=== PATIENT | female | born 1940 | race Caucasian/White ===

== ENCOUNTER → 2017-07-10 | Outpatient (CLI) | payer MEDICARE ==
[~2017-07-10] MED LIST: ASPIR 8181 M1 PO; ASPIR-TRIN325 MG PO; CALCIUM 500 +1 EAC5 PO; CALCIUM 600 +1 EAC1 PO; CENTRUM SILVER1 EAC1 PO; CENTRUM SILVER1 EAC4 PO; CHONDROITIN SU100 GM PO; CO Q-10100 MG PO; COLACE100 MG PO; ELIQUIS2.5 MG PO; ESTRACE0.5 MG PO; FERROUS SULFAT325 M1 PO; FISH OIL OMEGA1 EAC3 PO; FLUZONE 2045 MCG/011; GLUCOSAMINE &1 EACH PO; GLUCOSAMINE CH1 EAC7 PO; GLUCOSAMINE HC500 MG PO; IBUPROFEN 600600 M1 PO; IRON236 MG PO; IRON325 PO; LEVOXYL100 MCG PO; LIPITOR40 MG PO; LISINOPRIL-HCT1 EAC1 PO; LISINOPRIL-HCT1 EACH PO; LISINOPRIL20 MG PO; LO-DOSE ASPIRIN81 M1 PO; METAMUCIL1 EAC1 PO; MILK OF MA2400 MG/10 PO; ONDANSETRON HCL4 M2 PO; OXYCODONE HCL 55 MG PO; PERCOCET PO; PNEUMOVAX25 MCG/0.5; PRINZIDE 20-121 EACH PO; PYRIDIUM200 M1 PO; UNICOMPLEX M TA1 TA1 PO; VICODIN ES TAB1 EACH; VITAMIN D1000 UNI1 PO; XARELTO10 MG PO
--- NOTE | 2017-07-10 16:07 | 2DMMODE ---
[place] [address] 2 D/M-MODE ECHOCARDIOGRAM Name: SOFIE CUELLAR Room: [facility]#: [id number] Admission: 07/10/17 Attend Phys: Jony Chua MD Discharge: Date of : 38 Date of Service: 07/10/17 1607 Report #: [id number] THIS REPORT FOR: //name// APPROVED REPORT Study performed: 07/10/2017 09:26:58 EXAM: Comprehensive 2D, Doppler, and color-flow Echocardiogram Patient Location: Out-Patient Status: routine BSA: 1.82 HR: 69 bpm BP: 180/90 mmHg Other Information Study Quality: Good Indications CAD 2D Dimensions LVEF(%): 79.77 (>50%) IVSd: 10.62 (7-11mm) LVOT Diam: 19.48 (18-24mm) LVDd: 44.77 mm PWd: 10.83 (7-11mm) Ascending Ao: 33.28 (22-36mm) LVDs: 23.18 (25-40mm) Aortic Root: 29.00 mm Thakkar's LVEF: 79.77 % Volumes Left Atrial Volume (Systole) LA ESV Index: 18.00 mL/m2 Aortic Valve AoV Peak Doug.: 2.87 m/s AO Peak Gr.: 33.00 mmHg LVOT Max P.36 mmHg AO Mean Gr.: 20.28 mmHg LVOT Mean P.16 mmHg LVOT Max V: 1.04 m/s AO V2 VTI: 71.49 cm LVOT Mean V: 0.68 m/s BARB (VTI): 1.11 cm2 LVOT V1 VTI: 26.65 cm Mitral Valve E/A Ratio: 0.87 MV Decel. Time: 246.56 [place] [address] 2 D/M-MODE ECHOCARDIOGRAM Name: SOFIE CUELLAR Room: [facility]#: [id number] Admission: 07/10/17 Attend Phys: Jony Chua MD Discharge: Date of : 38 Date of Service: 07/10/17 1607 Report #: [id number] MV E Max Doug.: 0.99 m/s MV PHT: 71.50 ms MVA (PHT): 3.08 cm2 TDI E/Lateral E': 12.38 E/Medial E': 14.14 Medial E' Doug.: 0.07 m/s Lateral E' Doug.: 0.08 m/s Pulmonary Valve PV Peak Doug.: 1.45 m/s PV Peak Gr.: 8.43 mmHg Tricuspid Valve TR Peak Gr.: 20.30 mmHg RVSP: 25.30 mmHg Left Ventricle The left ventricle is normal size. There is normal LV segmental wall motion. There is normal left ventricular wall thickness. Left ventricular systolic function is normal. The left ventricular ejection fraction is within the normal range. LVEF is 60-65%. Grade I - abnormal relaxation pattern. Right Ventricle The right ventricle is normal size. The right ventricular systolic function is normal. Atria The left atrium size is normal. The right atrium size is normal. Aortic Valve Aortic valve is calcified. Trace aortic regurgitation. Moderate aortic stenosis. Mitral Valve There is mitral annular calcification. Mitral valve leaflets are thickened. Mild mitral regurgitation. No evidence of mitral valve stenosis. Tricuspid Valve The tricuspid valve is normal in structure. Mild tricuspid regurgitation. The RVSP is _25.3 mmHg. Pulmonic Valve The pulmonary valve is normal in structure. [place] [address] 2 D/M-MODE ECHOCARDIOGRAM Name: SOFIE CUELLAR Room: [facility]#: [id number] Admission: 07/10/17 Attend Phys: Jony Chua MD Discharge: Date of : 38 Date of Service: 07/10/17 1607 Report #: [id number] Great Vessels The aortic root is normal in size. IVC is normal in size and collapses with >50% inspiration Pericardium There is no pericardial effusion. <Conclusion> LVEF is 60-65%. Moderate aortic stenosis. Mild mitral regurgitation. <ELECTRONICALLY SIGNED> By: Jony Chua MD, FACC 07/10/17 1607 160 160 Jony Chua MD, FACC /INF
== END ==
LOC: M.CRD 08:57
DX: I08.1 Rheumatic disorders of both mitral and tricuspid valves (principal); I10 Essential (primary) hypertension

== ENCOUNTER → 2017-09-09 | Outpatient (CLI) | payer MEDICARE ==
[2017-09-09 15:10] LABS: CALCIUM 9.7 mg/dL (8.5-10.1); CREATININE 0.9 mg/dL (0.6-1.3); POTASSIUM 4.4 mmol/L (3.5-5.1)
== END ==
LOC: M.LAB 14:40
PROVIDERS: Nurse Practitioner
DX: I10 Essential (primary) hypertension (principal); I25.10 Atherosclerotic heart disease of native coronary artery without angina pectoris